=== PATIENT | male | born 1945 | race Caucasian/White ===

== ENCOUNTER → 2017-04-19 | Outpatient (CLI) | payer OTHER ==
[~2017-04-19] MED LIST: ADVIL200 MG PO; ALENDRONATE SOD70 MG PO; ASPIRIN LO-DOSE81 MG PO; BACTROBAN N1 GM/TUBE TOP; COZAAR100 MG PO; COZAAR25 MG PO; DILAUDID 2MG(HYD2 MG PO; DURAGESIC 12 M12 MCG TOP; FEVERFEW PO; GLUCAGON EMERGEN1 MG SUB-Q; HYDROCHLOROTH12.5 MG PO; HYDROCODON-ACE1 EAC4 PO; INDERAL20 MG PO; KEFLEX500 MG PO; LOVENOX 3030 MG/0.3 SUB-Q; MEDROL4 MG PO; MYSOLINE50 MG PO; NEURONTIN300 MG PO; NEURONTIN800 MG PO; NORCO 5-325 MG1 TAB PO; NORCO 5-325 TA1 EACH PO; NORCO 7.5-3251 EACH PO; NOVOLOG100 UNIT/M SUB-Q; PAXIL20 MG PO; PRILOSEC20 MG PO; TRIAMCINOLONE 015 GM TOP; TYLENOL EXTRA500 MG PO; TYLENOL650 MG PO; ULTRAM50 MG PO; VALACYCLOVIR1000 MG PO; XARELTO15 MG PO; XARELTO20 MG PO; [UNRECOGNIZED DRUG - REMARK] PO
== END | disposition disaster alternative care site (69) ==
LOC: GRAD 12:53
DX: M79.604 Pain in right leg (principal)

== ENCOUNTER → 2017-04-19 | Outpatient (CLI) | payer MEDICARE | END | disposition disaster alternative care site (69) | LOC: GRAD 12:00 | DX: S82.92XA Unspecified fracture of left lower leg, initial encounter for closed fracture (principal); M79.89 Other specified soft tissue disorders; S82.832A Other fracture of upper and lower end of left fibula, initial encounter for closed fracture; X58.XXXA Exposure to other specified factors, initial encounter ==

== ENCOUNTER → 2017-04-23 | Outpatient (CLI) | payer OTHER ==
[2017-04-23 10:22] LABS: ANION GAP 11.7 (10.0-19.0); BLOOD UREA NITROGEN 19 mg/dL (6-24); CHLORIDE 105 mMol/L (96-110); CO2 26 mMol/L (22-32); CREATININE 0.9 mg/dL (0.6-1.3); ESTIMATED GFR (MDRD EQUATION) > 60; POTASSIUM 3.7 mMol/L (3.7-5.1); SODIUM 139 mMol/L (135-145)
== END | disposition disaster alternative care site (69) ==
LOC: LNHI 10:04
PROVIDERS: Internal Medicine Interventional Cardiology
DX: I10 Essential (primary) hypertension (principal)